=== PATIENT | male | born 1945 | race Two or more races ===

== ENCOUNTER 2019-09-28 10:13 | Outpatient (CLI) | payer OTHER ==
[2019-09-29] MEDS ORDERED: SINGULAIR10 MG PO (09:41)
[2019-09-29] MEDS ORDERED: ALBUTEROL IH (09:43)
== END 2019-09-28 12:39 | disposition home or self-care (01) ==
LOC: LAB 10:13 → RAD 10:13 → LAB 12:39
PROVIDERS: ATTEND Surgery
DX: C20 Malignant neoplasm of rectum (principal); R19.4 Change in bowel habit; L29.0 Pruritus ani; I10 Essential (primary) hypertension

== ENCOUNTER 2019-10-03 05:17 | Day surgery (SDC) | payer OTHER ==
[~2019-10-03 05:17] MED LIST: ALBUTEROL IH; SINGULAIR10 MG PO
[2019-10-03] MEDS ORDERED: ULTRACET PO (08:50)
== END 2019-10-03 10:30 | disposition home or self-care (01) ==
LOC: CIR.AMB 05:17
PROVIDERS: ATTEND Surgery
DX: C20 Malignant neoplasm of rectum (principal)

== ENCOUNTER 2020-02-14 06:31 | Day surgery (SDC) | payer OTHER ==
[~2020-02-14 06:31] MED LIST changes: +ULTRACET PO
== END 2020-02-14 09:35 | disposition home or self-care (01) ==
LOC: AMB-ENDOS 06:31
PROVIDERS: ATTEND Surgery
DX: K62.89 Other specified diseases of anus and rectum (principal); Z20.828 Contact with and (suspected) exposure to other viral communicable diseases